=== PATIENT | male | born 1950 | race Caucasian/White ===

== ENCOUNTER 2016-10-17 13:10 | Emergency (ER) | payer OTHER ==
[2016-10-17 13:31] VITALS: BP 129/75
[2016-10-17] MEDS ORDERED: Ketorolac 60 MG/2 ML SDV IM ONE (13:38)
[2016-10-17] MEDS ORDERED: Cyclobenzaprine 10 MG Tab PO ONE (13:40)
--- NOTE | 2016-10-17 13:45 | EDM.PDOC ---
ED HPI LOWER BACK PAIN/INJURY - General Chief Complaint: Back Pain or Injury Stated Complaint: BACK PAIN Time Seen by Provider: 10/17/16 13:40 Source: Reports: Patient History Limitations: Reports: No limitations - History of Present Illness INITIAL COMMENTS - FREE TEXT/NARRATIVE: pt has a past history of lumbar disc diease. He had a similar episode about 12- 13 years ago, He is not having pain going down his legs. He was very stilff this am and had difficulty getting out of bed. Timing/Duration: Reports: Day(s):, Getting worse Location: Reports: lower Quality: Reports: Sharp, Stabbing Context: Reports: lifting, bending, other (Pt has been hauling alot of wood and doing alot of lifting and bending. ) Associated Symptoms: Reports: Denies symptoms - Related Data Allergies/ADRs: Allergies Allergy/AdvReac Type Severity Reaction Status Date / Time No Known Allergies Allergy Verified 10/17/16 13:21 Home Meds: Home Meds Aspirin/Calcium Carbonate/Mag [Aspirin Buffered 325 mg Tab] 4 tab PO ASDIRECTED 10/17/16 [History] Past Medical History HEENT History: Reports: Hard of hearing, Other (see below) Other HEENT History: deaf left ear Cardiovascular History: Reports: High cholesterol Musculoskeletal History: Reports: Back pain, chronic, Other (see below) Other Musculoskeletal History: slipped disc Neurological History: Reports: Vertigo Psychiatric History: Reports: Depression Social & Family History - Tobacco Use Years of Tobacco use: 60 Packs/Tins Daily: 0.5 Second Hand Smoke Exposure: No - Caffeine Use Caffeine Use: Reports: Coffee, Soda - Alcohol Use Days Per Week of Alcohol Use: 0 - Recreational Drug Use Recreational Drug Use: No ED ROS GENERAL - Review of Systems Review Of Systems: See Below Constitutional: Reports: no symptoms HEENT: Reports: No symptoms Respiratory: Reports: No Symptoms Cardiovascular: Reports: No symptoms Endocrine: Reports: no symptoms GI/Abdominal: Reports: No symptoms : Reports: no symptoms Musculoskeletal: Reports: other ( severe pain in the lower back area. ) Skin: Reports: no symptoms ED EXAM,LOWER BACK PAIN/INJURY - Physical Exam Exam: See Below Text/Narrative:: Pt arrived with severe lower back pain, more on the rt than the left. He has no pain radiating down his legs. Exam Limited By: No limitations General Appearance: alert, moderate distress Ears: normal TMs Nose: normal inspection Throat/Mouth: Normal inspection Head: atraumatic Neck: normal inspection Respiratory/Chest: no respiratory distress Cardiovascular: regular rate, rhythm GI/Abdominal: soft, non tender (Male) Exam: Deferred Rectal (Males) Exam: Deferred Back Exam: other ( Pt has marked tenderness in the lumbar lower back with evidence of muscle spasm to palpate. ) Course - Vital Signs Last Recorded V/S: Last Vital Signs Temp 36.3 C 10/17/16 13:24 Pulse 69 10/17/16 13:24 Resp 16 10/17/16 13:24 BP 129/75 10/17/16 13:24 Pulse Ox 96 10/17/16 13:24 - Orders/Labs/Meds Orders: Active Orders 24 hr Category Date Time Status Lumbar Spine Min 4V [CR] Stat Exams 10/17/16 13:39 Taken Meds: Medications Discontinued Medications Generic Name Dose Route Start Last Admin Trade Name Freq PRN Reason Stop Dose Admin Cyclobenzaprine HCl 10 mg 10/17/16 13:40 10/17/16 13:44 Flexeril PO 10/17/16 13:41 10 mg ONETIME ONE Administration Ketorolac Tromethamine 60 mg 10/17/16 13:38 10/17/16 13:44 Toradol IM 10/17/16 13:39 60 mg ONETIME ONE Administration - Re-Assessments/Exams Free Text/Narrative Re-Assessment/Exam: 10/17/16 13:47 Pt was given flexeril and torodol- im 60mg. . 10/17/16 14:52 xrays of the lumbar spine id not show any compression fractures or poor interspaces. alignment looked good. Departure - Departure Time of Disposition: 14:53 Disposition: Home, Self-Care 01 Condition: fair Clinical Impression: Lumbar paraspinal muscle spasm Forms: ED Department Discharge Care Plan Goals: ice back to area for the next 72 hours and then switch to moist heat. flexeril 10mg hs, torodol 10 mg q6h for no greater than 5 days. Take with food. rest and avoid pulling and lifting. see regular Dr if persistent problems. - My Orders Last 24 Hours: My Active Orders 10/17/16 13:39 Lumbar Spine Min 4V [CR] Stat - Assessment/Plan Last 24 Hours: My Active Orders 10/17/16 13:39 Lumbar Spine Min 4V [CR] Stat
--- NOTE | 2016-10-19 09:49 | CR ---
Lumbar Spine Min 4V HISTORY: Pain. COMPARISON: None FINDINGS: Minimal degenerative change with tiny anterior osteophyte formation. No acute fracture min imal degenerative facet change.
== END 2016-10-17 15:17 | disposition home or self-care (01) ==
LOC: JP.ED 13:10
DX: M62.830 Muscle spasm of back (principal); E78.00 Pure hypercholesterolemia, unspecified; F32.9 Major depressive disorder, single episode, unspecified; Z79.82 Long term (current) use of aspirin
CPT/HCPCS: 72110; 96372; 99284; A9270; J1885; 99283

== ENCOUNTER 2020-12-02 19:03 | Emergency (ER) | payer OTHER ==
[2020-12-02 20:30] VITALS: BP 117/73; PULSE 66
--- NOTE | 2020-12-02 21:17 | EDM.PDOC ---
ED HPI GENERAL MEDICAL PROBLEM - General Chief Complaint: General Stated Complaint: BROKE RIBS? Time Seen by Provider: 12/02/20 20:50 Source of Information: Reports: Patient History Limitations: Reports: No Limitations - History of Present Illness INITIAL COMMENTS - FREE TEXT/NARRATIVE: 70-year-old male who slipped on some wet steps 3 days ago landing hard on his left posterior chest wall, in because of persistent pain and bruising. It hurts to breathe but he is not short of breath, no nausea or vomiting, no abdominal pain. He thought he was doing quite a bit better yesterday but today it was hurting again and he had difficulty sleeping last night so he came in to be checked. He has been taking aspirin every 4 hours which helps. Onset: Sudden Duration: Day(s): (3 days ago) Location: Reports: Chest (Left lateral chest and left flank) Quality: Reports: Sharp, Stabbing Worsens with: Reports: Other (Hurts to move and breathe) Associated Symptoms: Reports: No Other Symptoms - Related Data Allergies Allergy/AdvReac Type Severity Reaction Status Date / Time No Known Allergies Allergy Verified 12/02/20 20:29 Home Meds: Home Meds Aspirin/Calcium Carbonate/Mag [Aspirin Buffered 325 mg Tab] 4 tab PO ASDIRECTED 10/17/16 [History] Past Medical History HEENT History: Reports: Hard of Hearing, Other (See Below) Other HEENT History: deaf left ear Cardiovascular History: Reports: High Cholesterol Musculoskeletal History: Reports: Back Pain, Chronic, Other (See Below) Other Musculoskeletal History: slipped disc Neurological History: Reports: Vertigo Psychiatric History: Reports: Depression - Past Surgical History Other Oncologic Surgeries/Procedures: biopsy of lump in throat inconclsive Social & Family History - Tobacco Use Tobacco Use Status *Q: Current Some Day Tobacco User Years of Tobacco use: 50 Packs/Tins Daily: 0.2 - Caffeine Use Caffeine Use: Reports: None - Recreational Drug Use Recreational Drug Use: No ED ROS GENERAL - Review of Systems Review Of Systems: See Below Constitutional: Denies: Fever, Chills, Malaise HEENT: Reports: No Symptoms Respiratory: Reports: Pleuritic Chest Pain. Denies: Shortness of Breath Cardiovascular: Reports: Chest Pain GI/Abdominal: Denies: Abdominal Pain, Nausea, Vomiting Skin: Reports: Bruising (Has developed bruising over the left lateral flank area) Neurological: Reports: No Symptoms Psychiatric: Reports: No Symptoms ED EXAM, GENERAL - Physical Exam Exam: See Below Exam Limited By: No Limitations General Appearance: Alert, No Apparent Distress Eye Exam: Bilateral Eye: Normal Inspection Head: Atraumatic Neck: Supple, Non-Tender Respiratory/Chest: Lungs Clear, Other (Posterior left chest has significant ecchymosis, very tender to palpation but no deformity or crepitus is felt) Cardiovascular: Regular Rate, Rhythm GI/Abdominal: Soft Extremities: Normal Inspection Neurological: Alert, Oriented Psychiatric: Normal Affect, Normal Mood Skin Exam: Ecchymosis (Left flank area) Course - Vital Signs Last Recorded V/S: Last Vital Signs Temp 97.3 F 12/02/20 20:36 Pulse 66 12/02/20 20:36 Resp 18 12/02/20 20:36 BP 117/73 12/02/20 20:36 Pulse Ox 96 12/02/20 20:36 - Re-Assessments/Exams Free Text/Narrative Re-Assessment/Exam: 12/02/20 21:17 CT the chest without contrast was obtained and actually looks really good. Awaiting for the formal reading, patient is anxious to get going so he will be discharged with 10 hydrocodone for extra pain control, will continue with anti- inflammatories, increase activity as tolerated and return if worsening such as difficulty breathing or fever. 12/02/20 22:18 IMPRESSION: Mild pleural hematoma in the left posterior lateral lower chest associated with an acute, nondisplaced fracture of the posterior-lateral left 9th rib. Small pleural hematoma located along the posterior aspect of the left 10th rib, but without definite fracture. No sign of pneumothorax or pulmonary contusion. Above results were discussed with the patient. Departure - Departure Time of Disposition: 21:27 Disposition: Home, Self-Care 01 Clinical Impression: Rib fracture Qualifiers: Encounter type: initial encounter Rib fracture type: single rib Fracture type: closed Laterality: left Qualified Code(s): S22.32XA - Fracture of one rib, left side, initial encounter for closed fracture Contusion of left chest wall Qualifiers: Encounter type: initial encounter Qualified Code(s): S20.212A - Contusion of left front wall of thorax, initial encounter - Discharge Information Instructions: Contusion, [id number] Referrals: PCP,None [Primary Care Provider] - Forms: ED Department Discharge Care Plan Goals: A regular anti-inflammatory such as ibuprofen or naproxen will be helpful, and add stronger pain medication if needed as directed. Increase activity as tolerated, concentrate on getting full breaths on a regular basis, and return anytime if worsening such as shortness of breath, coughing up blood, uncontrolled pain or other concerns. Sepsis Event Note (ED) - Evaluation Sepsis Screening Result: No Definite Risk - Focused Exam Vital Signs: Vital Signs Temp Pulse Resp BP Pulse Ox 12/02/20 20:36 97.3 F 66 18 117/73 96 12/02/20 20:28 97.3 F 66 18 117/73 96
--- NOTE | 2020-12-02 22:05 | CRLCT ---
For Patients: As a result of the Century Cures Act, medical imaging exams and procedure reports are released immediately into your electronic medical record. You may view this report before your referring provider. If you have questions, please contact your health care provider. INDICATION: Status post fall with left-sided pain. COMPARISON: None available TECHNIQUE: CT examination of the chest was performed without contrast enhancement. 3 mm thick axial sections were obtained from above the apices of the lungs to the lung bases. Please note that all CT scans at this facility use dose modulation, iterative reconstruction, and/or weight-based dosing when appropriate to reduce radiation dose to as low as reasonably achievable. FINDINGS: There is mild subcutaneous soft tissue stranding in the posterior left lower chest wall consistent with a mild contusion. There is no sign of any hematoma, soft tissue gas, or radiopaque foreign body. There is mild pleural thickening located along the posterior-lateral left chest wall adjacent to the posterior-lateral left 9th rib and the posterior left 10th rib. There appears to be an acute, nondisplaced fracture of the posterior-lateral left 9th rib, best seen on axial image 77 series 3. I cannot definitely identify a fracture of the 10th rib. There is no sign of pneumothorax, pulmonary contusion, or pleural effusion on either side. There is mild left apical pleural thickening with calcification suggesting previous asbestos exposure. There is minimal right apical pleural thickening without calcification. There is a noncalcified subpleural nodule measuring 4 millimeters in length along the lateral aspect of the right major fissure on axial image 70 series 3. There is a noncalcified 4 millimeter pleural nodule in the posterior-medial left lung base on axial image 94 series 3. There is a noncalcified 2 millimeter subpleural nodule in the anterior-lateral left upper lobe on axial image 26 series 3. A similar 2 millimeter calcified pleural nodule is seen anterior-laterally in the left upper lobe on axial image 30 series 3. These nodules can be followed using Halie society criteria. The lungs are clear with no sign of significant infiltrate or mass. There is no sign of mediastinal or hilar mass or adenopathy. Sensitivity is limited by lack of contrast enhancement. There is minimal LAD coronary calcification. The heart is otherwise normal in appearance for the patient`s age. There is age appropriate appearance of the thoracic aorta and ascending great vessels. There is no sign of supraclavicular or axillary mass or adenopathy. The visualized superior liver, spleen, pancreas, kidneys, and adrenals are normal in appearance. There is no sign of any additional rib fracture. There is no sign of fracture of the visualized shoulder girdle sternum, manubrium, or thoracic spine. IMPRESSION: Mild pleural hematoma in the left posterior lateral lower chest associated with an acute, nondisplaced fracture of the posterior-lateral left 9th rib. Small pleural hematoma located along the posterior aspect of the left 10th rib, but without definite fracture. No sign of pneumothorax or pulmonary contusion. Several small pleural and subpleural nodules as described above in both lungs can be followed using Fleischner society criteria. Mild left apical pleural thickening and calcifications suggesting previous asbestos exposure. Please note that all CT scans at this facility use dose modulation, iterative reconstruction, and/or weight-based dosing when appropriate to reduce radiation dose to as low as reasonably achievable. Dictated by Tito Torre MD @ 12/02/2020 10:03:[address] Tito Torre @ Dec 02 2020 10:03PM
== END 2020-12-02 21:27 | disposition home or self-care (01) ==
LOC: JP.ED 19:03
DX: S22.32XA Fracture of one rib, left side, initial encounter for closed fracture (principal); Z72.0 Tobacco use; W10.9XXA Fall (on) (from) unspecified stairs and steps, initial encounter
CPT/HCPCS: 71250; 99283-25

== ENCOUNTER 2020-12-11 15:14 | Emergency (ER) | payer OTHER ==
[2020-12-11 15:28] VITALS: BP 136/68; PULSE 76
--- NOTE | 2020-12-11 15:44 | EDM.PDOC ---
ED HPI GENERAL MEDICAL PROBLEM - General Chief Complaint: General Stated Complaint: BROKEN RIB PAIN Time Seen by Provider: 12/11/20 15:35 Source of Information: Reports: Patient, Old Records, RN History Limitations: Reports: No Limitations - History of Present Illness INITIAL COMMENTS - FREE TEXT/NARRATIVE: 70 [facility] [place] [facility] was here a couple weeks ago and broke a rib. Dr. Maloney invited him to return for any reason and he is out of his meds so he came back for a refill. The med, [place], helped him and he had no SE's. Onset: Sudden Onset Date: 11/27/20 Duration: Week(s): (2), Constant Location: Reports: Chest Quality: Reports: Sharp Severity: Moderate Improves with: Reports: Rest Worsens with: Reports: Movement Context: Reports: Trauma Associated Symptoms: Reports: No Other Symptoms Treatments MOTHER HELPER: Reports: Other (see below) (none) Left Thoracic Pain Score (Numeric/FACES): 3 - Related Data Allergies Allergy/AdvReac Type Severity Reaction Status Date / Time No Known Allergies Allergy Verified 12/11/20 15:28 Home Meds: Home Meds Aspirin/Calcium Carbonate/Mag [Aspirin Buffered 325 mg Tab] 4 tab PO ASDIRECTED 10/17/16 [History] Acetaminophen [Tylenol Extra Strength] 500 mg PO Q6H PRN 12/11/20 [History] Past Medical History HEENT History: Reports: Hard of Hearing, Other (See Below) Other HEENT History: deaf left ear Cardiovascular History: Reports: High Cholesterol Musculoskeletal History: Reports: Back Pain, Chronic, Other (See Below) Other Musculoskeletal History: slipped disc Neurological History: Reports: Vertigo Psychiatric History: Reports: Depression - Past Surgical History Other Oncologic Surgeries/Procedures: biopsy of lump in throat inconclsive Social & Family History - Tobacco Use Tobacco Use Status *Q: Current Every Day Tobacco User Years of Tobacco use: 53 Packs/Tins Daily: 0.5 - Caffeine Use Caffeine Use: Reports: Coffee - Recreational Drug Use Recreational Drug Use: No ED ROS GENERAL - Review of Systems Review Of Systems: See Below Constitutional: Reports: No Symptoms HEENT: Reports: No Symptoms Respiratory: Reports: Pleuritic Chest Pain Cardiovascular: Reports: No Symptoms Endocrine: Reports: No Symptoms GI/Abdominal: Reports: No Symptoms Skin: Reports: Bruising (L flank) ED EXAM, GENERAL - Physical Exam Exam: See Below Exam Limited By: No Limitations General Appearance: Alert, WD/WN, No Apparent Distress Eye Exam: Bilateral Eye: Normal Inspection Ears: Normal External Exam, Normal Canal, Hearing Grossly Normal Ear Exam: Bilateral Ear: Auricle Normal, Canal Normal Nose: Normal Inspection Throat/Mouth: Normal Lips, Normal Voice, No Airway Compromise Head: Atraumatic, Normocephalic Respiratory/Chest: No Respiratory Distress, Lungs Clear, Normal Breath Sounds Cardiovascular: Regular Rate, Rhythm, No Edema Neurological: Alert, Oriented, CN II-XII Intact, Normal Cognition, No Motor/Sensory Deficits Psychiatric: Normal Affect, Normal Mood Skin Exam: Warm, Dry, Intact, No Rash, Ecchymosis (10 x 9 cm area of bruising L flank area) Course - Vital Signs Last Recorded V/S: Last Vital Signs Temp 36.0 C L 12/11/20 15:32 Pulse 76 12/11/20 15:32 Resp 16 12/11/20 15:32 BP 136/68 12/11/20 15:32 Pulse Ox 96 12/11/20 15:32 Departure - Departure Time of Disposition: 15:48 Disposition: Home, Self-Care 01 Condition: Good Clinical Impression: Rib fracture Qualifiers: Encounter type: initial encounter Rib fracture type: single rib Fracture type: closed Laterality: left Qualified Code(s): S22.32XA - Fracture of one rib, left side, initial encounter for closed fracture - Discharge Information *PRESCRIPTION DRUG MONITORING PROGRAM REVIEWED*: No *COPY OF PRESCRIPTION DRUG MONITORING REPORT IN PATIENT RADHA: No Referrals: PCP,None [Primary Care Provider] - Forms: ED Department Discharge Additional Instructions: Use ibuprofen and/or acetaminophen for pain relief. Substitute hydrocodone for the acetaminophen if more pain relief is needed. Recheck as needed. Sepsis Event Note (ED) - Evaluation Sepsis Screening Result: No Definite Risk - Focused Exam Vital Signs: Vital Signs Temp Pulse Resp BP Pulse Ox 12/11/20 15:32 36.0 C L 76 16 136/68 96 12/11/20 15:26 36.0 C L 76 16 136/68 96
== END 2020-12-11 15:57 | disposition home or self-care (01) ==
LOC: JP.ED 15:14
DX: S22.32XD Fracture of one rib, left side, subsequent encounter for fracture with routine healing (principal); E78.00 Pure hypercholesterolemia, unspecified; Z79.82 Long term (current) use of aspirin; Z72.0 Tobacco use; Z76.0 Encounter for issue of repeat prescription; X58.XXXD Exposure to other specified factors, subsequent encounter
CPT/HCPCS: 99281